=== PATIENT | male | born 1970 | race Caucasian/White ===

== ENCOUNTER 2020-09-19 10:05 | Outpatient (CLI) | payer OTHER, SELFPAY ==
--- NOTE | ~2020-09-19 | CT_ITS ---
EXAMINATION: CTA brain carotid DATE: 09/19/2020 11:21 INDICATION: Right-sided headache. TECHNIQUE: Computed tomographic angiography (CTA) of the head was performed without and with 100 mL O mnipaque-350 intravenous contrast. CTA of the neck was performed with intravenous contrast. Automated exposure control and iterative reconstruction technique were employed. The dose-length product was 1 539.59 mGy-cm. Maximum intensity projection and volume rendered 3D-reconstructions were created by rafy verdin technologist on a separate workstation. COMPARISON: None. FINDINGS: HEAD CTA: There is no intracranial hemorrhage, acute infarction, or abnormal intracranial mass lesion . The ventricles are normal in size. The vertebral arteries are codominant. There is no significant s tenosis of basilar artery or the posterior cerebral arteries. There is no significant stenosis of the intracranial internal carotid arteries or anterior or middle cerebral arteries. Anterior communicati ng artery is normal. The posterior communicating arteries are normal. There is mucosal thickening in the paranasal sinuses. The orbits are normal. The mastoid air cells are normal. NECK CTA: There are no pathologically enlarged lymph nodes. There is no significant stenosis of the v ertebral arteries. There is plaque in the proximal internal carotid arteries. There is 11% stenosis o f the proximal right internal carotid artery relative to normal distal artery lumen diameter (NASCET criteria). There is 20% stenosis of the proximal left internal carotid artery relative to normal dist al artery lumen diameter. There are changes of anterior fusion procedure from C3 to C6. There is mode rate cervical spondylosis. IMPRESSION: 1. Normal brain. No aneurysm or significant intracranial arterial stenosis. 2. 11% stenosis of the proximal right internal carotid artery relative to normal distal artery lumen diameter (NASCET criteria). 3. 20% stenosis of the proximal left internal carotid artery relative to normal distal artery lumen diameter. Reviewed, dictated and finalized at location A. IMPRESSION: 1. Normal brain. No aneurysm or significant intracranial arterial stenosis. 2. 11% stenosis of the proximal right internal carotid artery relative to norm al distal artery lumen diameter (NASCET criteria). 3. 20% stenosis of the proximal left internal carotid artery relative to adonay l distal artery lumen diameter.
[2020-09-19 10:27] LABS: Estimated Glomerular Filt Rate > 60
== END 2020-09-19 10:06 ==
PROVIDERS: PCP Internal Medicine; Visit Provider Psychiatry & Neurology Neurology
DX: R51.9 Headache, unspecified (principal)
CPT/HCPCS: 70496; 70498; Q9967

== ENCOUNTER 2021-11-30 07:34 | Outpatient (CLI) | payer OTHER, SELFPAY ==
--- NOTE | ~2021-11-30 | XR_ITS ---
EXAM: XR_CERV2-3V_CR DATE: 11/30/2021 07:51 HISTORY: M54.2 - Cervicalgia.RT SIDE PAIN. FUSION 5 YRS AGO . COMPARISON: None available. FINDINGS: Anterior fusion from C3 to C6, without apparent complication. Craniocervical association an d atlantoaxial joint are normal. No prevertebral soft tissue swelling. Vertebral bodies are aligned. Vertebral body heights and disc spaces are maintained. Normal facets and posterior elements. Osteopen ia. IMPRESSION: ACDF spanning C3-C6, no radiographic evidence of hardware-related complication. Reviewed, dictated and finalized at location K. IMPRESSION: ACDF spanning C3-C6, no radiographic evidence of hardware-related c omplication.
== END 2021-11-30 07:35 | disposition home or self-care (01) ==
PROVIDERS: PCP Family Medicine; Visit Provider Family Medicine
DX: M54.2 Cervicalgia (principal); G89.29 Other chronic pain
CPT/HCPCS: 72040

== ENCOUNTER 2022-01-13 16:08 | Outpatient (CLI) | payer OTHER, SELFPAY ==
--- NOTE | ~2022-01-13 | MR_ITS ---
EXAMINATION: MR cervical spine wo con DATE: 01/13/2022 16:44 INDICATION: Acute on chronic neck pain TECHNIQUE: Magnetic resonance imaging (MRI) of the cervical spine was performed without intravenous c ontrast. Sequences included sagittal T2-weighted FSE, sagittal T2-weighted FS FSE, sagittal T1-weight ed FSE, axial MERGE and axial T2-weighted FSE. COMPARISON: None FINDINGS: C3-C6 anterior spinal fusion with anterior plate and screw fixation. Bone alignment is normal. Unfuse d vertebral body heights are normal. Bone marrow signal intensity is normal. Mild disc height loss a t C2-C3 and C6-C7. Not included on the axial images but seen on sagittal images are annular fissures with left paracentral disc extrusion at T1-2 and central extrusion at T2-T3, both resulting in mild c entral canal stenosis. Cervical levels will be further detailed on a level by level basis below. Cord signal intensity is normal. C2-C3: Disc is mildly bulging with superimposed annular fissure and small central disc extrusion with disc material extending a few millimeters cephalad and caudal to the level of the endplates. There i s mild bilateral uncovertebral joint osteoarthritis. There is mild bilateral facet joint osteoarthrit is. There is mild bilateral neural foraminal stenosis. There is mild central canal stenosis. C3-C4: Disc space is fused with prominent uncovertebral hypertrophic changes. There is mild bilateral facet joint osteoarthritis. There is mild to moderate left and moderate right neural foraminal steno sis. There is no central canal stenosis. C4-C5: Disc space is fused with uncovertebral hypertrophic changes. There is mild bilateral facet maribell nt osteoarthritis. There is mild right and minimal left neural foraminal stenosis. There is no centra l canal stenosis. C5-C6: Disc space is fused with uncovertebral hypertrophic changes. There is mild bilateral facet maribell nt osteoarthritis. There is moderate bilateral neural foraminal stenosis. There is no central canal s tenosis. C6-C7: Disc is bulging with annular fissure. There is severe bilateral uncovertebral joint osteoarthr itis. There is mild bilateral facet joint osteoarthritis. There is moderate bilateral neural foramina l stenosis. There is mild central canal stenosis. C7-T1: Disc is mildly bulging with superimposed annular fissure and small right paracentral disc extr usion with disc material extending a few millimeter cephalad and caudal to the level of the endplates . There is mild bilateral uncovertebral joint osteoarthritis. There is mild left and moderate right f acet joint osteoarthritis. There is mild right neural foraminal stenosis. There is mild central canal stenosis. IMPRESSION: 1. C3-C6 anterior spinal fusion with plate and screw fixation. 2. Mild cervical and upper thoracic spondylosis. Reviewed, dictated and finalized at location A.
== END 2022-01-13 16:09 ==
PROVIDERS: PCP Family Medicine; Visit Provider Physician Assistant
DX: M47.892 Other spondylosis, cervical region (principal); M47.894 Other spondylosis, thoracic region; Z98.1 Arthrodesis status
CPT/HCPCS: 72141

== ENCOUNTER 2023-12-04 09:09 | Outpatient (CLI) | payer OTHER, SELFPAY ==
[2023-12-04 08:18] LABS: Alanine Aminotransferase 17 U/L (6-50); Albumin Level 4.4 g/dL (3.5-5.1); Alkaline Phosphatase 102 U/L (38-126); Anion Gap 8 mmol/L (4-12); Aspartate Amino Transferase 21 U/L (17-59); Bilirubin,Total 0.9 mg/dL (0.2-1.3); Blood Urea Nitrogen 12 mg/dL (9-20); Calcium 8.9 mg/dL (8.4-10.2); Carbon Dioxide 28 mmol/L (22-30); Chloride 103 mmol/L (98-107); Cholesterol 186 mg/dL (0-200); Estimated Glomerular Filt Rate > 60; Glucose 95 mg/dL (65-110); HDL Direct 34 mg/dL; Potassium 3.9 mmol/L (3.4-5.0); Sodium 139 mmol/L (137-145); Triglycerides 115 mg/dL (<150)
[2023-12-04 08:28] LABS: LDL Cholesterol Direct 127 mg/dL
[2023-12-04 09:25] LABS: Hematocrit 43.8 % (42.0-52.0); Hemoglobin 14.3 g/dL (14.0-18.0); Mean Corpuscular HGB Conc 32.6 g/dl (32-36); Mean Corpuscular Hemoglobin 30.1 pg (26-34); Mean Corpuscular Volume 92.2 fl (80-100); Mean Platelet Volume 10.2 fl (7.4-10.4); Platelet Count Result 257 k/mm3 (150-375); Red Blood Count 4.75 M/mm3 (4.6-6.20); Red Cell Distribution Width 14.6 % (11.5-14.5); White Blood Count 11.1 K/mm3 (4.5-10.0)
[2023-12-04 09:27] LABS: Appearance Urine Clear (Clear); Bilirubin Urine Negative (Negative); Blood Urine Negative (Negative); Color Urine Yellow (Yellow); Glucose Urine UA Negative (Negative); Ketones Urine Negative (Negative); Leukocyte Esterase Ur Negative LEU/UL (Negative); Nitrate Urine Negative (Negative); Protein Urine Negative (Negative); Specific Grav Ur 1.013 (1.001-1.035); pH Urine 6.5 (5.0-9.0)
[2023-12-04 09:28] LABS: Add Urine Microscopic? NO
[2023-12-04 09:35] LABS: Hemoglobin A1C 5.7 % (<5.7)
[2023-12-04 10:07] LABS: Prostate Specific Antigen 0.9 ng/mL (< OR = 4.0)
== END 2023-12-04 09:10 | disposition home or self-care (01) ==
PROVIDERS: Physician Assistant Medical; PCP Family Medicine; Visit Provider Family Medicine
DX: E78.5 Hyperlipidemia, unspecified (principal); E66.9 Obesity, unspecified; I10 Essential (primary) hypertension; R53.83 Other fatigue; Z12.5 Encounter for screening for malignant neoplasm of prostate; Z00.00 Encounter for general adult medical examination without abnormal findings
CPT/HCPCS: 36415; 80053; 80061; 81003; 83036; 84153; 84443; 85027; G0103

== ENCOUNTER 2024-09-07 10:07 | Outpatient (CLI) | payer OTHER, SELFPAY ==
--- NOTE | ~2024-09-07 | XR_ITS ---
EXAMINATION: XR chest 2V 09/07/2024 10:34 INDICATION: Cough PROCEDURE: 2 view chest COMPARISON: No prior studies for comparison. FINDINGS: The lungs are clear. The cardiomediastinal silhouette is within normal limits. There are no pleural effusions. There is no pneumothorax suspected. IMPRESSION: 1: NO ACUTE CARDIOPULMONARY DISEASE. Reviewed, dictated and finalized at location A.
[2024-09-07 11:13] LABS: Influenza A QL RT-PCR Negative (Negative); Influenza B QL RT-PCR Negative (Negative); SARS-CoV-2 RNA PCR Negative (Negative)
--- OUTSIDE RECORDS SUMMARY | 2024-09-07 11:23 | XMS_ITS | Clinical Summary ---
Author Organization [facility] Address [address] [place] [address] Care Team Providers Care Animal Doctor Name Role Phone Lonnie Bennett MD Primary Care Provider [phone] Usman Knapp MD Unavailable [phone] Source Comments [facility],non-owned Affiliates and Associated Physician Practices is amultiple site organization consisting of ambulatory clinics and hospital sitesin [place], [place], [place] and [place]. This disclosure is being madepursuant to the Care Everywhere program and may not contain all information available regarding this patient. Last updated 18.[facility] Allergies No known active allergies Medications * Be aware that medications may not be up to date on this document. Alwaysverify current medications with the patient. Medication Sig Dispensed Refills Start Date End Date Status PARoxetine (PAXIL) 40 MG tablet Take 40 mg by mouth once daily. Active lisinopril-hydrochloro thiazide (PRINZIDE; ZESTORETIC) 10-12.5 MG tablet Take 1 Tab by mouth once daily. Active pantoprazole (PROTONIX) 40 MG packet Take 40 mg by mouth once daily. Active hydrocodone-acetaminop hen (NORCO) 5-325 MG tablet Take 1-2 Tabs by mouth every 4 hours as needed for Pain. 40 Tab 1 01/14/2012 Active methocarbamol (ROBAXIN) 750 MG tablet Take 1 Tab by mouth every 6 hours as needed for Muscle Spasms. 40 Tab 1 01/14/2012 Active Active Problems Problem Noted Date Diagnosed Date Arthrodesis status 01/29/2012 Cervical spondylosis without myelopathy 01/08/20 12 Foraminal stenosis of cervical region 01/08/2012 Social History Tobacco Use Types Packs/Day Years Used Date Smoking Tobacco: Every Day Cigarettes Tobacco Cessation:Ready to Q uit: No; Counseling Given: Yes Alcohol Use Standard Drinks/Week Comments Yes 0 (1 standard drink = 0.6 oz pur e alcohol) 3 BEERS WEEKLY Sex and Gender Information Value Date Recorded Sex Assigned at Not on file Gender Identity Not on file Sexual Orientation Not on file Last Filed Vital Signs Vital Sign Reading Time Taken Comments Blood Pressure 118/78 03/01/2012 2:18 PM CDT Pulse 62 03/01/2012 2:18 PM CDT Temperature 36.4 C (97.5 F) 01/14/2012 8:11 AM CDT Respiratory Rate 18 01/14/2012 8:11 AM CDT Oxygen Saturation 99% 01/14/2012 8:11 AM CDT Inhaled Oxygen Concentration - - Weight 103.9 kg (229 lb) 03/01/2012 2:18 PM CDT Height 175.3 cm (5' 9 ) 03/01/2012 2:18 PM CDT Body Mass Index 33.82 03/01/2012 2:18 PM CDT Plan of Treatment Health Maintenance Due Date Last Done Comments COLOGUARD (AGES 45-75) - COL ON CA SCREENING 1968 COLON MONITORING 1968 COLONOSCOPY - COLON CA SCREENING 1968 CT COLONOGRAPHY - COLON CA SCREENING 1968 Colorectal Cancer Screening 1968 FIT - COLON CA SCREENING 1968 FLEX SIG - COLON CA SCREENING 1968 LIPID TESTING 1968 HIV SCREENING 1983 HEPATITIS C SCREENING 07/19/1986 DTAP/TDAP/TD VACCINES (1 - Tdap) 1987 HEPATITIS B VACCINE (1 of 3 - 19+ 3-dose series) 1987 PNEUMOCOCCAL VACCINE 50+ (1 of 2 - PCV) 1987 PNEUMOCOCCAL VACCINE (1 of 2 - PCV) 1987 ZOSTER VACCINE (1 of 2) 2018 COVID-19 VACCINE ( - 2023-2 5 season) 2024 INFLUENZA VACCINE (#1) 2024 DEPRESSION SCREENING 06/15/2024 HIB VACCINE Aged Out No longer eligi ble based on patient's age to complete this topic HPV VACCINE Aged Out No longer eligi ble based on patient's age to complete this topic MENINGOCOCCAL (Group B) VACC INE SHARED DECISION-MAKING Aged Out No longer eligibl e based on patient's age to complete this topic MENINGOCOCCAL GROUPS A/C/Y/W VACCINE Aged Out No longer eligible b ased on patient's age to complete this topic Advance Directives * FULL RESUSCITATION (Latest Code Status on File) Date Activated Date Inactivated Comments 01/13/2012 2:27 PM 01/14/2012 11:42 AM Care Teams Animal Doctor Relationship Specialty Start Date End Date Lonnie Bennett MD [address] [phone] PCP - General Internal Medicine 01/06/12 Usman Knapp MD [address] [phone] Neurological Surgery 01/07/12
--- OUTSIDE RECORDS SUMMARY | 2024-09-07 11:23 | XMS_ITS | CONTINUITY OF CARE DOCUMENT ---
Author Name jj josemichael Address Unknown Organization [facility] Address [address] [place] [address] Phone [phone] Care Team Providers Care Resident Caregiver Name Role Phone Duran Dickey MD Unavailable [phone] Lonnie Bennett MD Unavailable Lonnie Bennett MD Unavailable [phone] PROBLEMS Condition Status Date Provider Notes PREDIABETES active Duran Dickey MD Syncope active Jennifer Cecil Screening active Duran Dickey MD Hyperlipidemia;with high crp active Duran Dickey MD GERD active Duran Dickey MD Obesity active Duran Dickey MD Tobacco dependence, continuous active Danie Dickey MD Exposure to SARS-associated coronavirus;neg igg active Duran Dickey MD Sleep apnea active Duran Dickey MD HTN essential active Duran Dickey MD ENCOUNTERS Date Type Provider Location Encounter Diag nosis - In-person encounter Office Visit Duran Dickey MD [place] [facility] ScreeningHyperlipidemia;with high crpGERDObesityTobacco dependence, continuousExposure to SARS-associated coronavirus;neg iggSleep apneaHTN essential VITAL SIGNS Date Observation Value Provider Body Mass Index (Ratio) 36.18 kg/m2 Tons cyr Moses weight in kilograms E&M 111.13 kg Tons cyr [facility] weight E&M 245 [lb_av] [facility] height in centimeters E&M 175.26 cm To [facility] height E&M 69 [in_i] [facility] blood pressure, resting Yes [facility] blood pressure, diastolic 94 mm[Hg] To [facility] pulse rate 80 /min [facility] respiratory rate E&M 18 /min [facility] oxygen saturation, oximetry 97 % [facility] blood pressure, systolic 144 mm[Hg] [facility] ALLERGIES No Known Drug Allergies RESULTS Date Observation Value Provider Reference Range Interpretation Location c-reactive protein, quantitative, serum 12.43 mg/L [facility] 0.00-3.00 High B-12, serum 839 pg/mL [facility] [id number] hemoglobin A1C, blood, as % of total hemoglobin 5.8 % [facility] 4.8-5.6 High HISTORY OF MEDICATION USE Medication Status Instructions Dates Provider Indications Com ments rosuvastatin 20 mg tablet active TAKE ONE TABLET BY MOUTH EVERY DAY Florencio Castillo RYBELSUS 3 MG ORAL TABLET active one a day Duran Dickey MD Crestor 20 mg tablet completed ONE TAB. DAILY - Duran Dickey MD CONTRAVE 8-90 MG ORAL TABLET EXTENDED RELEASE 12 HOUR active 1 tab daily x1 week, then 1 tab twice daily x1 week, then 1 tab three times daily x1 week, then two tabs twice daily Duran Dickey MD PANTOPRAZOLE SODIUM 40 MG ORAL TABLET DELAYED RELEASE active Duran Dickey MD #30, 30 days supply, Prescribed by LONNIE BENNETT, Filled 12/19/2019 LISINOPRIL 10 MG ORAL TABLET active Duran Dickey MD #30, 30 days supply, Prescribed by LONNIE BENNETT, Filled 12/19/2019 SOCIAL HISTORY Date Observation Value Provider smoking/tobacco cess ation, patient education and counseling yes Duran Dickey MD social history E&M S moking History: P atient currently smokes every day. Duran Dickey MD social history reviewed E&M judi ewed - no changes required Duran Dickey MD smoking, date started 1981 [facility] smoking history, tot al pack/year 365 [facility] smoking history, tot al pack/day 1 [facility] cigarette use yes [facility] smoking status Current every day smoker T [facility] FAMILY HISTORY Family Member Condition Father Family History Unkno wn Mother Family History Unkno wn INSURANCE PROVIDERS Payer name Policy type / Coverage type [place] [employer] party ID [facility] [id number] Other [id number] ADVANCE DIRECTIVES Name Date DISCUSSED - NO DECISION MADE TREATMENT PLAN Date Name Performer :neg nuc and bnp and vit d and b 12 Duran Dickey MD :neg nuc and bnp and vit d Danie Dickey MD :5.8 Duran Dickey MD Cardiology:WILL TRY CONTRAVE Deshawn Dickey MD Cardiology Duran Dickey MD Cardiology Duran Dickey MD Cardiology:SX Duran Dickey MD Cardiology Duran Dickey MD Cardiology Duran Dickey MD Cardiology Duran Dickey MD Cardiology Duran Dickey MD Cardiology:negnuc and neg bnp Cyr christopher Dickey MD Date Name Sleep Study Home HEMOGLOBIN A1c Covid Antibody Igg C-REACTIVE PROTEIN VITAMIN B12 Vitamin D, 25-Hydrox y CT, Coronary Calcium Score Mobile Cardiac Tele Stress Exercise Card iolite HISTORY OF PROCEDURES Procedure Date Procedure Name Provider Procedure Notes S tatus EKG Duran Dickey MD complete d Cardiolite, 2 units Duran Dickey MD completed SPECT Images Duran Dickey MD comple iraida Stress EKG Duran Dickey MD complete d
--- OUTSIDE RECORDS SUMMARY | 2024-09-07 11:23 | XMS_ITS | Clinical Summary ---
Author Organization [facility] [place] Address [address] [employer] [address] [phone] Care Team Providers Care Deli Worker Name Role Phone Tevin Bonner MD Primary Care Provider Active Problems No known active problems Encounters Date Type Department Care Team Description 08/23/2024 External Device Data [facility] ABSTRACTION Provider, Abstract 08/23/2024 External Device Data [facility] Provider, Abstract 07/26/2024 External Device Data [facility] Provider, Abstract 06/21/2024 External Device Data [facility] Provider, Abstract from Last 3 Months Social History Tobacco Use Types Packs/Day Years Used Date Smoking Tobacco: Never Assessed Sex and Gender Information Value Date Recorded Sex Assigned at Not on file Legal Sex Male 1:22 PM CDT Gender Identity Not on file Sexual Orientation Not on file Last Filed Vital Signs Vital Sign Reading Time Taken Comments Blood Pressure 124/76 12/07/2023 7:35 AM CDT Pulse - - Temperature - - Respiratory Rate - - Oxygen Saturation - - Inhaled Oxygen Concentration - - Weight 113.4 kg (250 lb) 12/07/2023 7:35 AM CDT Height 172.7 cm (5' 8 ) 12/07/2023 7:35 AM CDT Body Mass Index 38.01 12/07/2023 7:35 AM CDT Plan of Treatment Upcoming Encounters Date Type Department Care Team (Late st Contact Info) Description 09/16/2024 2:00 PM CDT Office Visit [facility] [employer] [place] [address] [address] Health Maintenance Due Date Last Done Comments Pre-Diabetes and Diabetes Screening 1968 DTAP/TDAP/TD VACCINES (1 - Tdap) 1987 HEPATITIS B VACCINES (1 of 3 - 19+ 3-dose series) 01/1988 COLORECTAL SCREENING 2013 Colorectal Cancer Screening 2013 FIT-DNA Q 3 years 2013 FIT/FOBT Q 1 year 2013 Flex Sig/CT Colonography Q 5 years 2013 ZOSTER VACCINE (1 of 2) 2018 INFLUENZA VACCINE (#1) 2024 Insurance ALLEGIANCE OPEN ACCESS ALLEGIANCE OPEN ACCESS Care Teams Deli Worker Relationship Specialty Start Date End Date Tevin Bonner MD [address] [phone] PCP - General Family Practice 01/02/23
--- OUTSIDE RECORDS SUMMARY | 2024-09-07 11:23 | XMS_ITS | Clinical Summary ---
Author Organization [facility] Address [address] [place] [address] Care Team Providers Care Hospitalist Program Director Name Role Phone Tevin Bonner MD Primary Care Provider [phone] Allergies No known active allergies Medications lisinopril (PRINIVIL) 20 MG tablet Take 1 tablet by mouth daily. 07/15/2022 Active pantoprazole (PROTONIX) 40 MG packet Take 40 mg by mouth daily. Active sertraline (ZOLOFT) 50 MG tablet 06/30/2022 Active Active Problems Problem Noted Date Diagnosed Date Foraminal stenosis of cervical region 07/18/2022 Radiculopathy, cervical region 07/18/2022 Other cervical disc degenera tion, unspecified cervical region 07/18/2022 History of fusion of cervical spine 07/18/2022 Cervicalgia 07/18/2022 Social History Tobacco Use Types Packs/Day Years Used Date Smoking Tobacco: Every Day Cigarettes Tobacco Cessation:Ready to Q uit: No; Counseling Given: Yes Sex and Gender Information Value Date Recorded Sex Assigned at Not on file Legal Sex Male 11:09 AM CDT Gender Identity Not on file Sexual Orientation Not on file Last Filed Vital Signs Vital Sign Reading Time Taken Comments Blood Pressure 139/88 07/18/2022 8:03 AM GRIEVANCE AND APPEALS COORDINATOR Pulse 71 07/18/2022 8:03 AM GRIEVANCE AND APPEALS COORDINATOR Temperature 36.6 C (97.9 F) 07/18/2022 8:03 AM GRIEVANCE AND APPEALS COORDINATOR Respiratory Rate - - Oxygen Saturation 98% 07/18/2022 8:03 AM GRIEVANCE AND APPEALS COORDINATOR Inhaled Oxygen Concentration - - Weight 102.3 kg (225 lb 9.6 oz) 07/18/2022 8:03 AM GRIEVANCE AND APPEALS COORDINATOR Height 172.7 cm (5' 8 ) 07/18/2022 8:03 AM GRIEVANCE AND APPEALS COORDINATOR Body Mass Index 34.3 07/18/2022 8:03 AM GRIEVANCE AND APPEALS COORDINATOR Plan of Treatment Health Maintenance Due Date Last Done Comments Colorectal Cancer Screening Colonoscopy (10 Years) 1968 Annual Physical 1971 Pneumococcal Vaccine: Pediat rics (0 to 5 Years) and At-Risk Patients (6 to 64 Years) (1 of 2 - PCV) 1974 PHQ-2 (Physician [place]) 1980 Hepatitis C 1986 DTaP, Tdap and Td Vaccines ( 1 - Tdap) 1987 Hepatitis B Vaccines (1 of 3 - 19+ 3-dose series) 1987 Zoster Vaccines (1 of 2) 2018 COVID-19 Vaccine (1 - 2023-2 5 season) 2024 Influenza Adult (#1) 2024 PHQ-2 (Phys[facility] [place]) 06/15/2024 Meningococcal B Vaccine Aged Out No l onger eligible based on patient's age to complete this topic Meningococcal Vaccine Aged Out No janice jose eligible based on patient's age to complete this topic RSV Immunizations Under 20 Months Aged Out No longer eligible based on patient's age to complete this topic Insurance Care Teams Hospitalist Program Director Relationship Specialty Start Date End Date Tevin Bonner MD [address] [place] [address] PCP - General FAMILY PRACTICE 07/18/22
== END 2024-09-07 10:08 | disposition home or self-care (01) ==
LOC: ANHLAB 10:08
PROVIDERS: PCP Family Medicine; Visit Provider Physician Assistant Medical
DX: R05.9 Cough, unspecified (principal); R68.83 Chills (without fever); R53.81 Other malaise; Z20.822 Contact with and (suspected) exposure to COVID-19
CPT/HCPCS: 71046; 87636